=== PATIENT | female | born 1980 | race Caucasian/White ===

== ENCOUNTER 2018-04-07 07:24 | Emergency (ER) ==
[2018-04-07 07:28] VITALS: BP 109/73; TEMP 97.5; BMI 23.8
--- NOTE | 2018-04-07 07:51 | ED.PDOC ---
General ED Provider: Dr. MOO WHITE Chief Complaint: Wrist Pain/Injury Stated Complaint: right hand and wrist pain Time Seen by Physician: 07:33 (no injury. DELFINA MTZ RN WAS PRESENT AT ALL TIMES ) Mode of Arrival: Walk-In Information Source: Patient Exam Limitations: No limitations Nursing and Triage Documentation Reviewed and Agree: Yes Reviewed sepsis parameters & appropriate labs ordered?: Yes System Inflammatory Response Syndrome: Not Applicable (NO TRAUMA) Sepsis Protocol: For patient's 13 years and over: Temp is 96.8 and below OR 101 and greater Pulse >90 BPM Resp >20/minute Acutely Altered Mental Status Are patient's symptoms suggestive of a new infection, such as: -Pneumonia -Skin, Soft Tissue -Endocarditis -UTI -Bone, Joint Infection -Implantable Device -Acute Abdominal Infection -Wound Infection -Meningitis -Blood Stream Catheter Infection -Unknown Musculoskeletal Complaint Exam - Hand/Wrist Complaint/Exam Location of Pain: Reports: Right, Hand, Digit #1, Digit #2, Digit #3 Mechanism of Injury: Reports: No known trauma Onset/Duration: 2 DAYS Symptoms Are: Still present Onset of Pain: Reports: Days Initial Severity: Moderate Current Severity: Moderate Location: Reports: Discrete Character: Reports: Aching (NUMBNESS IN THE DISTRIBUTION OF MEDIAN NERVE ) Alleviating: Reports: None Aggravating: Reports: Movement Associated Signs and Symptoms: Denies: Swelling, Redness, Bruising, Fever, Weakness, Numbness, Tingling Related History: Reports: Similar episode Dominant Hand: Right Hand/Wrist Findings: Present: Tinel's Sign (POSITIVE). Absent: Swelling, Ecchymosis, Abnormal contour, Ligamentous instability Tenderness: Absent: Radius, Ulna, Snuff box, Carpal, Metacarpal, Phalanx Differential Diagnoses: Carpal Tunnel Syndrome Review of Systems - Review Of Systems Constitutional: Reports: No symptoms Eyes: Reports: No symptoms Ears, Nose, Mouth, Throat: Reports: No symptoms Respiratory: Reports: No symptoms Cardiac: Reports: No symptoms GI: Reports: No symptoms : Reports: No symptoms Musculoskeletal: Reports: Other (HAND PAIN) Skin: Reports: No symptoms Neurological: Reports: No symptoms Endocrine: Reports: No symptoms Hematologic/Lymphatic: Reports: No symptoms All Other Systems: Reviewed and Negative Past Medical History - Past Medical History Previously Healthy: Yes Endocrine: Reports: None Cardiovascular: Reports: None Respiratory: Reports: None Hematological: Reports: None Gastrointestinal: Reports: None Genitourinary: Reports: None Neuro/Psych: Reports: None Musculoskeletal: Reports: None Cancer: Reports: None Last Menstrual Period: SECOND WEEK OF MARCH - Surgical History General Surgical History: Reports: None - Family History Family History: Reports: None - Social History Smoking Status: Current every day smoker, Light tobacco smoker Hx Substance Use: No Alcohol Screening: None Physical Exam - Physical Exam Appearance: Well-appearing, No pain distress, Well-nourished Eyes: SALUD, EOMI, Conjunctiva clear ENT: Ears normal, Nose normal, Oropharynx normal Respiratory: Airway patent, Breath sounds clear, Breath sounds equal, Respirations nonlabored Cardiovascular: RRR, Pulses normal, No rub, No murmur GI/: Soft, Nontender, No masses, Bowel sounds normal, No Organomegaly Musculoskeletal: Limited ROM (THE RIGHT TENDER NUMBNESS NOTED IN THE DISTRIBUTION OF MEDIAN NERVE) Skin: Warm, Dry, Normal color Neurological: Sensation intact, Motor intact, Reflexes intact, Cranial nerves intact, Alert, Oriented Psychiatric: Affect appropriate, Mood appropriate Critical Care Note - Critical Care Note Total Time (mins): 0 Course - Course Vital Signs: Temp Pulse Resp BP Pulse Ox 04/07/18 07:24 97.5 F L 81 18 109/73 99 Departure - Departure Time of Disposition: 07:52 Disposition: HOME SELF-CARE Discharge Problem: Pain in wrist, Injury of wrist Carpal tunnel syndrome Qualifiers: Laterality: right Qualified Code(s): G56.01 - Carpal tunnel syndrome, right upper limb Instructions: Paresthesia (ED), Carpal Tunnel Surgery (DC) Condition: Good Pt referred to PMD for follow-up: Yes (CLINIC) IPMP verified?: Yes Additional Instructions: Please call your Family Physician as soon as possible to schedule a follow-up appointment.NEEDS TO SEE ORTHO FOR CARPAL TUNNEL EVALUATION. Prescriptions: Hydrocodone/Acetaminophen [[place] 5-325 Tablet] 1 each PO Q6HR PRN #12 tablet PRN Reason: PAIN Allergies/Adverse Reactions: Allergies Bleach (Sodium Hypochlorite) Adverse Reaction (Verified 04/07/18 07:28) Penicillins Adverse Reaction (Verified 04/07/18 07:28) Home Medications: Ambulatory Orders Hydrocodone/Acetaminophen [[place] 5-325 Tablet] 1 each PO Q6HR PRN #12 tablet
== END 2018-04-07 08:05 | disposition home or self-care (01) ==
LOC: ED 07:24
DX: G56.01 Carpal tunnel syndrome, right upper limb (principal); F17.210 Nicotine dependence, cigarettes, uncomplicated
CPT/HCPCS: 99282

== ENCOUNTER 2018-04-22 07:03 | Emergency (ER) ==
[2018-04-22 07:08] VITALS: BP 107/73; TEMP 98.1; BMI 23.0
[2018-04-22] MEDS ORDERED: ATIVAN IM STA (07:15)
--- NOTE | 2018-04-22 08:26 | DI ---
EXAM: Chest two view, frontal and lateral views. HISTORY: Chest pain. COMPARISON: None available. FINDINGS: The heart size is normal. There is no pulmonary vascular congestion. The lungs are clear . No pleural effusion or pneumothorax is seen. No acute osseous abnormality identified. Old left c lavicular fracture noted. IMPRESSION: No acute cardiopulmonary process.
[2018-04-22] MEDS ORDERED: ATIVAN IVP STA (08:34)
--- NOTE | 2018-04-22 09:42 | CT ---
EXAM: CT Angiogram Chest. HISTORY: Chest pain. COMPARISON: Radiograph earlier the same day. TECHNIQUE: Multiple axial images of the chest were obtained following intravenous administration of 125 mL of Omnipaque 350, low osmolar. Images were reformatted in the sagittal and coronal plane. 3- D and maximum intensity projection reformatted images were created on an independent workstation. FINDINGS: Residual thymic tissue is present. No mediastinal, hilar, or axillary lymphadenopathy peter ntified. Heart size is normal. No pericardial effusion identified. There is no evidence for aortic dissectio n. No pulmonary arterial filling defects are seen. No consolidation, pleural effusion or pneumothorax identified. A 0.3 cm subpleural right lower lobe nodule on axial image 51 most likely due to previous infection or inflammation. No acute abnormality identified in the upper abdomen. The osseous structures are within normal limit s for the patient's age save for old left lateral fifth rib fracture.. IMPRESSION: No evidence for pulmonary embolus or other acute abnormality of the chest.
--- NOTE | 2018-04-22 09:58 | ED.PDOC ---
General ED Provider: Dr. MOO WHITE Chief Complaint: Chest Pain Stated Complaint: chest pain Time Seen by Physician: 07:08 (RN PRESENT AT ALL TIMES ) Mode of Arrival: Walk-In Information Source: Patient Exam Limitations: No limitations Nursing and Triage Documentation Reviewed and Agree: Yes Does patient meet sepsis criteria?: Yes If yes, has appropriate treatment been initiated?: No System Inflammatory Response Syndrome: Not Applicable Sepsis Protocol: For patient's 13 years and over: Temp is 96.8 and below OR 101 and greater Pulse >90 BPM Resp >20/minute Acutely Altered Mental Status Are patient's symptoms suggestive of a new infection, such as: -Pneumonia -Skin, Soft Tissue -Endocarditis -UTI -Bone, Joint Infection -Implantable Device -Acute Abdominal Infection -Wound Infection -Meningitis -Blood Stream Catheter Infection -Unknown Cardiovascular Complaint Exam - Chest Pain Complaint/Exam Onset: Gradual Duration: 1 day Symptoms Are: Still present Timing: Constant Length of Chest Pain Episodes: 1 day pt gets such pain during her anxiety attacks Initial Severity: Moderate Current Severity: Moderate Location: Reports: Discrete, Midsternal Pain Radiates: Reports: None Character: Reports: Dull Aggravating: Reports: None Alleviating: Reports: None Associated Signs and Symptoms: Reports: Cough. Denies: Diaphoresis, Nausea, Vomiting, Fever, Palpitations, Hemoptysis, Back pain, Abdominal pain, Dizziness , Short of air, Calf pain, Calf swelling Related History: Reports: Similar episode Related Surgical History: Reports: None History of Healthcare-Acquired Pneumonia: Reports: No AMI/ACS Risk Factors: Reports: None TAD Risk Factors: Reports: None Pulmonary Embolism Risk Factors: Reports: None Prior Care for this Complaint: No Recent Stress Test: No Recent Echo/LV Function: No JVD Present: No Subcutaneous Emphysema Present: No Diminshed Breath Sounds: No Reproducible Chest Wall Pain: No Bilateral Pulses Present: Yes Unequal Pulses Noted: No If Risk Factors for AMI/ACS Consider: EKG, Cardiac Enzymes If Risk Factors for PE Consider: Chest CT with contrast Differential Diagnoses: ACS, Pulmonary Edema, Lower Resp. Infection Review of Systems - Review Of Systems Constitutional: Reports: No symptoms Eyes: Reports: No symptoms Ears, Nose, Mouth, Throat: Reports: No symptoms Respiratory: Reports: Cough Cardiac: Reports: Chest pain GI: Reports: No symptoms : Reports: No symptoms Musculoskeletal: Reports: No symptoms Skin: Reports: No symptoms Neurological: Reports: No symptoms Endocrine: Reports: No symptoms Hematologic/Lymphatic: Reports: No symptoms All Other Systems: Reviewed and Negative Past Medical History - Past Medical History Previously Healthy: Yes Endocrine: Reports: None Cardiovascular: Reports: None Respiratory: Reports: None Hematological: Reports: None Gastrointestinal: Reports: None Genitourinary: Reports: None Neuro/Psych: Reports: None Musculoskeletal: Reports: None Cancer: Reports: None Last Menstrual Period: 03/22/18 - Surgical History General Surgical History: Reports: None - Family History Family History: Reports: None - Social History Smoking Status: Current every day smoker, Light tobacco smoker Hx Substance Use: No Alcohol Screening: None Physical Exam - Physical Exam Appearance: Well-appearing, No pain distress, Well-nourished Eyes: SALUD, EOMI, Conjunctiva clear ENT: Ears normal, Nose normal, Oropharynx normal Respiratory: Airway patent, Breath sounds clear, Breath sounds equal, Respirations nonlabored Cardiovascular: RRR, Pulses normal, No rub, No murmur GI/: Soft, Nontender, No masses, Bowel sounds normal, No Organomegaly Musculoskeletal: Normal strength, ROM intact, No edema, No calf tenderness Skin: Warm, Dry, Normal color Neurological: Sensation intact, Motor intact, Reflexes intact, Cranial nerves intact, Alert, Oriented Psychiatric: Affect appropriate, Mood appropriate Interpretation - Radiology Interpretation Radiology Interpretation By: Radiologist Radiology Results: No acute changes Critical Care Note - Critical Care Note Total Time (mins): 0 Course - Course Hematology/Chemistry: 04/22/18 07:20 04/22/18 07:20 Orders, Labs, Meds: Lab Review 04/22/18 04/22/18 04/22/18 07:20 07:20 07:20 WBC 4.46 L RBC 3.57 L Hgb 8.1 L Hct 26.0 L MCV 72.8 L MCH 22.7 L MCHC 31.2 L RDW Coeff of Devyn 16.1 H Plt Count 172 Immature Gran % (Auto) 0.2 Neut % (Auto) 47.1 Lymph % (Auto) 42.6 Mcdonald % (Auto) 9.0 Eos % (Auto) 0.7 Baso % (Auto) 0.4 Immature Gran # (Auto) 0.0 Neut # (Auto) 2.1 Lymph # (Auto) 1.9 Mcdonald # (Auto) 0.4 Eos # (Auto) 0.0 Baso # (Auto) 0.0 PT INR APTT D-Dimer (Manual) Puncture Site O2 Saturation ABG pH ABG pCO2 ABG pO2 ABG HCO3 ABG Total CO2 ABG Base Excess Johny Test FiO2 % Sodium 140 Potassium 3.4 L Chloride 111 H Carbon Dioxide 21 Anion Gap 11.4 BUN 10 Creatinine 0.65 Estimated GFR (MDRD) 101.00 BUN/Creatinine Ratio 15.38 Glucose 96 Calcium 9.1 Total Bilirubin 0.7 AST 15 ALT 9 L Alkaline Phosphatase 53 Total Creatine Kinase 79 Troponin I < 0.0100 B-Natriuretic Peptide Total Protein 6.5 Albumin 3.5 Globulin 3.0 Albumin/Globulin Ratio 1.17 Serum , Qual Negative 04/22/18 04/22/18 04/22/18 08:00 08:00 08:00 WBC RBC Hgb Hct MCV MCH MCHC RDW Coeff of Devyn Plt Count Immature Gran % (Auto) Neut % (Auto) Lymph % (Auto) Mcdonald % (Auto) Eos % (Auto) Baso % (Auto) Immature Gran # (Auto) Neut # (Auto) Lymph # (Auto) Mcdonald # (Auto) Eos # (Auto) Baso # (Auto) PT 10.4 INR 1.04 APTT 24.1 D-Dimer (Manual) 342.54 Puncture Site O2 Saturation ABG pH ABG pCO2 ABG pO2 ABG HCO3 ABG Total CO2 ABG Base Excess Johny Test FiO2 % Sodium Potassium Chloride Carbon Dioxide Anion Gap BUN Creatinine Estimated GFR (MDRD) BUN/Creatinine Ratio Glucose Calcium Total Bilirubin AST ALT Alkaline Phosphatase Total Creatine Kinase Troponin I B-Natriuretic Peptide 79 Total Protein Albumin Globulin Albumin/Globulin Ratio Serum , Qual 04/22/18 08:29 WBC RBC Hgb Hct MCV MCH MCHC RDW Coeff of Devyn Plt Count Immature Gran % (Auto) Neut % (Auto) Lymph % (Auto) Mcdonald % (Auto) Eos % (Auto) Baso % (Auto) Immature Gran # (Auto) Neut # (Auto) Lymph # (Auto) Mcdonald # (Auto) Eos # (Auto) Baso # (Auto) PT INR APTT D-Dimer (Manual) Puncture Site Rrad O2 Saturation 99.0 ABG pH 7.474 H ABG pCO2 28.2 L ABG pO2 109.0 H ABG HCO3 20.7 L ABG Total CO2 22 ABG Base Excess -3 L Johny Test + FiO2 % 21.0 Sodium Potassium Chloride Carbon Dioxide Anion Gap BUN Creatinine Estimated GFR (MDRD) BUN/Creatinine Ratio Glucose Calcium Total Bilirubin AST ALT Alkaline Phosphatase Total Creatine Kinase Troponin I B-Natriuretic Peptide Total Protein Albumin Globulin Albumin/Globulin Ratio Serum , Qual Orders Category Date Time Status ABG DRAW REQUEST Stat CARDIO 04/22/18 08:30 Completed EKG-(ED ONLY) Stat CARDIO 04/22/18 07:15 Completed EKG-(ED ONLY) Stat CARDIO 04/22/18 08:31 Completed NPO REMINDER: IMAGING ONCE CARE 04/22/18 08:30 Active ABG Stat LAB 04/22/18 08:29 Completed B-TYPE NATRIURETIC PEPTIDE Stat LAB 04/22/18 08:00 Completed CBC W/ AUTO DIFF Stat LAB 04/22/18 07:20 Completed COMPREHENSIVE METABOLIC PANEL Stat LAB 04/22/18 07:20 Completed CREATINE KINASE Stat LAB 04/22/18 07:20 Completed D-DIMER Stat LAB 04/22/18 08:00 Completed PARTIAL THROMBOPLASTIN TIME Stat LAB 04/22/18 08:00 Completed PT WITH INR Stat LAB 04/22/18 08:00 Completed SERUM Stat LAB 04/22/18 07:20 Completed TROPONIN I Stat LAB 04/22/18 07:20 Completed Lorazepam [Ativan] MEDS 04/22/18 07:15 Discontinued 1 mg IM ONCE STA Lorazepam [Ativan] MEDS 04/22/18 08:34 Discontinued 1 mg IVP ONCE STA CHEST, 2 VIEWS PA & LAT Stat RADS 04/22/18 07:[address] CHEST PE PROTOCOL Stat RADS 04/22/18 08:29 Completed Medications Discontinued Medications Generic Name Dose Route Start Last Admin Trade Name Freq PRN Reason Stop Dose Admin Lorazepam 1 mg 04/22/18 07:15 04/22/18 07:20 Ativan IM 04/22/18 07:16 2 mg ONCE STA Administration Lorazepam 1 mg 04/22/18 08:34 Ativan IVP 04/22/18 08:35 ONCE STA Vital Signs: Temp Pulse Resp BP Pulse Ox 04/22/18 07:05 98.1 F 87 16 107/73 98 MESFIN Risk Score MESFIN Risk Score: Risk Score Odds of by 30D 0 0.1 (0.1-0.2) 1 0.3 (0.2-0.3) 2 0.4 (0.3-0.5) 3 0.7 (0.6-0.9) 4 1.2 (1.0-1.5) 5 2.2 (1.9-2.6) 6 3.0 (2.5-3.6) 7 4.8 (3.8-6.1) Departure - Departure Time of Disposition: 09:58 (nurses NEYMAR MARIN ,FELIX PRESENT PT REFUSED TO BE ADMITTED , RISKS DISCUSSED STILL REFUSED ) Disposition: AMA Discharge Problem: Chest pain Instructions: Angina (ED), Chest Pain (DC) Condition: Good Pt referred to PMD for follow-up: Yes IPMP verified?: No Additional Instructions: Please call your Family Physician as soon as possible to schedule a follow-up appointment. Allergies/Adverse Reactions: Allergies Bleach (Sodium Hypochlorite) Adverse Reaction (Verified 04/07/18 07:28) Penicillins Adverse Reaction (Verified 04/07/18 07:28) steroids Adverse Reaction (Uncoded 04/22/18 07:08) Home Medications: Ambulatory Orders 1 [No Reported Medications] 04/22/18
== END 2018-04-22 10:10 | disposition left against medical advice (07) ==
LOC: ED 07:03
DX: R07.9 Chest pain, unspecified (principal); R05 Cough; D64.9 Anemia, unspecified; F17.210 Nicotine dependence, cigarettes, uncomplicated
CPT/HCPCS: 36415; 80053; 82550; 82803; 83880; 84484; 84703; 85025; 85379; 85610; 85730; 93005; 93010; 96372; 99284

== ENCOUNTER 2018-06-09 07:07 | Emergency (ER) ==
[2018-06-09 07:14] VITALS: BP 100/62; TEMP 98.1; BMI 22.4
--- NOTE | 2018-06-09 07:28 | ED.PDOC ---
General ED Provider: Dr. KIRSTEN DAVENPORT Chief Complaint: Back Pain Stated Complaint: Rt Flank pain/lower central sharp chest wall Pain . Previouly dx pyelonephritis. Previously dx weak chest wall as cause of chest wall pain. Denies cardiac issues Time Seen by Physician: 07:15 Mode of Arrival: Walk-In Information Source: Patient Exam Limitations: No limitations Nursing and Triage Documentation Reviewed and Agree: Yes Does patient meet sepsis criteria?: No System Inflammatory Response Syndrome: Not Applicable Sepsis Protocol: For patient's 13 years and over: Temp is 96.8 and below OR 101 and greater Pulse >90 BPM Resp >20/minute Acutely Altered Mental Status Are patient's symptoms suggestive of a new infection, such as: -Pneumonia -Skin, Soft Tissue -Endocarditis -UTI -Bone, Joint Infection -Implantable Device -Acute Abdominal Infection -Wound Infection -Meningitis -Blood Stream Catheter Infection -Unknown Complaint Exam - UTI Female Complaint/Exam Patient Complains of: Reports: Painful urination (Awakened with "Rt Kidney Pain " 2 hrs ago. Pain in Rt Flank) Onset/Duration: 2hrs ago Symptoms Are: Still present Timing: Constant Initial Severity: Severe Current Severity: Moderate Location of Pain: Reports: Right, Flank Associated Signs and Symptoms: Reports: Flank pain. Denies: Fever, Chills, Dyspareunia, Vaginal discharge Related History: Reports: Similar episode Related Surgical History: Reports: None CVA Tenderness: Yes Suprapubic Tenderness: Yes Differential Diagnoses: Pyelonephritis - Complaint/Exam Patient Complains of: Reports: Pain Symptoms Are: Still present Timing: Constant Initial Severity: Severe Current Severity: Moderate Location of Pain: Reports: Right, Flank. Denies: Groin, Vulva, Suprapubic, Radiating Character: Reports: Sharp, Constant pressure Aggravating: Reports: None Alleviating: Reports: Position Associated Signs and Symptoms: Reports: Back pain. Denies: Hematuria, Dysuria, Rectal pain, Increased urine frequency, Abdominal Pain Related History: Reports: Similar episode (Related to pyelonephritis) Review of Systems - Review Of Systems Constitutional: Reports: No symptoms Eyes: Reports: No symptoms Ears, Nose, Mouth, Throat: Reports: No symptoms Respiratory: Reports: No symptoms Cardiac: Reports: No symptoms GI: Reports: No symptoms : Reports: Flank pain. Denies: Frequency, Urgency Musculoskeletal: Reports: No symptoms, Other (chest wall pain) Skin: Reports: No symptoms Neurological: Reports: No symptoms Endocrine: Reports: No symptoms Hematologic/Lymphatic: Reports: No symptoms All Other Systems: Reviewed and Negative Past Medical History - Past Medical History Previously Healthy: Yes Endocrine: Reports: None Cardiovascular: Reports: None Respiratory: Reports: None Hematological: Reports: None Gastrointestinal: Reports: None Genitourinary: Reports: None Neuro/Psych: Reports: None Musculoskeletal: Reports: None Cancer: Reports: None Last Menstrual Period: aug first part - Surgical History General Surgical History: Reports: None - Family History Family History: Reports: None - Social History Smoking Status: Current every day smoker, Light tobacco smoker Hx Substance Use: No Alcohol Screening: None Physical Exam - Physical Exam Appearance: Well-appearing, Thin Ill-appearing: Mild Pain Distress: Moderate Eyes: SALUD, EOMI, Conjunctiva clear ENT: Ears normal, Nose normal, Oropharynx normal Neck: Supple Respiratory: Airway patent, Breath sounds clear, Breath sounds equal, Respirations nonlabored Cardiovascular: RRR, Pulses normal, No rub, No murmur GI/: Soft, Nontender (positive Rt FLank(+ortiz's sign)), Bowel sounds normal , No Organomegaly Musculoskeletal: Normal strength (pos ant chest wall pain lower sternal) Skin: Warm, Dry, Normal color Neurological: Sensation intact, Motor intact, Reflexes intact, Cranial nerves intact, Alert, Oriented Psychiatric: Affect appropriate, Mood appropriate Critical Care Note - Critical Care Note Total Time (mins): 0 Course - Course Hematology/Chemistry: 06/09/18 07:44 06/09/18 07:44 Orders, Labs, Meds: Lab Review 06/09/18 06/09/18 06/09/18 07:20 07:20 07:44 WBC 3.92 L RBC 3.59 L Hgb 7.8 L Hct 26.1 L MCV 72.7 L MCH 21.7 L MCHC 29.9 L RDW Coeff of Devyn 16.6 H Plt Count 186 Immature Gran % (Auto) 0.3 Neut % (Auto) 43.6 Lymph % (Auto) 46.2 [place] % (Auto) 8.4 Eos % (Auto) 1.0 Baso % (Auto) 0.5 Immature Gran # (Auto) 0.0 Neut # (Auto) 1.7 L Lymph # (Auto) 1.8 [place] # (Auto) 0.3 L Eos # (Auto) 0.0 Baso # (Auto) 0.0 Sodium Potassium Chloride Carbon Dioxide Anion Gap BUN Creatinine Estimated GFR (MDRD) BUN/Creatinine Ratio Glucose Calcium Total Bilirubin AST ALT Alkaline Phosphatase Total Creatine Kinase Troponin I Total Protein Albumin Globulin Albumin/Globulin Ratio Urine Color Yellow Urine Clarity Clear Urine pH 5.5 Ur Specific [place] 1.020 Urine Protein Negative Urine Glucose (UA) Negative Urine Ketones Negative Urine Blood Negative Urine Nitrite Negative Urine Bilirubin Negative Urine Urobilinogen 0.2 Ur Leukocyte Esterase Negative Urine Opiates Screen Negative Ur Oxycodone Screen Negative Urine Methadone Screen Negative Ur Propoxyphene Screen Negative Ur Barbiturates Screen Negative U Tricyclic Antidepress Negative Ur Phencyclidine Scrn Negative Ur Amphetamine Screen Negative U Methamphetamines Scrn Negative U Benzodiazepines Scrn Negative Urine Cocaine Screen Negative U Cannabinoids Screen Negative 06/09/18 07:44 WBC RBC Hgb Hct MCV MCH MCHC RDW Coeff of Devyn Plt Count Immature Gran % (Auto) Neut % (Auto) Lymph % (Auto) [place] % (Auto) Eos % (Auto) Baso % (Auto) Immature Gran # (Auto) Neut # (Auto) Lymph # (Auto) [place] # (Auto) Eos # (Auto) Baso # (Auto) Sodium 137 Potassium 4.1 Chloride 109 H Carbon Dioxide 22 Anion Gap 10.1 BUN 12 Creatinine 0.65 Estimated GFR (MDRD) 101.00 BUN/Creatinine Ratio 18.46 Glucose 89 Calcium 9.6 Total Bilirubin 0.5 AST 26 ALT 19 Alkaline Phosphatase 67 Total Creatine Kinase 46 Troponin I < 0.0100 Total Protein 6.8 Albumin 3.6 Globulin 3.2 Albumin/Globulin Ratio 1.13 Urine Color Urine Clarity Urine pH Ur Specific [place] Urine Protein Urine Glucose (UA) Urine Ketones Urine Blood Urine Nitrite Urine Bilirubin Urine Urobilinogen Ur Leukocyte Esterase Urine Opiates Screen Ur Oxycodone Screen Urine Methadone Screen Ur Propoxyphene Screen Ur Barbiturates Screen U Tricyclic Antidepress Ur Phencyclidine Scrn Ur Amphetamine Screen U Methamphetamines Scrn U Benzodiazepines Scrn Urine Cocaine Screen U Cannabinoids Screen Orders Category Date Time Status EKG-(ED ONLY) Stat CARDIO 06/09/18 07:23 Ordered BLOOD CULTURE (ED ONLY) Stat LAB 06/09/18 07:44 Received CBC W/ AUTO DIFF Stat LAB 06/09/18 07:44 Completed CMP [COMPREHENSIVE METABOLIC PANEL] Stat LAB 06/09/18 07:44 Completed CPK [CREATINE KINASE] Stat LAB 06/09/18 07:44 Completed TROPONIN I Stat LAB 06/09/18 07:44 Completed UA [URINALYSIS C & S IF INDICATED] Stat LAB 06/09/18 07:20 Completed URINE DRUG SCREEN (RAPID FOR ED) [DRUG SCREEN, URINE, LAB 06/09/18 07:20 Completed RAPID] Stat CHEST, 1V AP ONLY Stat RADS 06/09/18 07:[address] ABD/PEL WO RENAL STONE PROT Stat RADS 06/09/18 08:09 Completed Vital Signs: Temp Pulse Resp BP Pulse Ox 06/09/18 07:07 98.1 F 66 20 100/62 99 Departure - Departure Time of Disposition: 09:15 Disposition: HOME SELF-CARE Discharge Problem: Bilateral nephrolithiasis, Anemia Instructions: Kidney Stones (ED), Renal Colic (ED) Condition: Fair Pt referred to PMD for follow-up: Yes IPMP verified?: No Additional Instructions: Consume adequate clear liquids Establish care with PCP and obtain referral to Urologist Urologist available in [place], [place] and [place], [place] If pain recurs or worsens return to ER Obtain Feosol for anemia and take 1 daily 1 hr after meals Follow up PCP for further evaluation in next week Prescriptions: Ferrous Sulfate [Feosol] 325 mg PO DAILY #30 tablet Allergies/Adverse Reactions: Allergies Bleach (Sodium Hypochlorite) Adverse Reaction (Verified 06/09/18 07:18) Penicillins Adverse Reaction (Verified 06/09/18 07:18) steroids Adverse Reaction (Uncoded 04/22/18 07:08) Home Medications: Ambulatory Orders Ferrous Sulfate [Feosol] 325 mg PO DAILY #30 tablet 06/09/18
--- NOTE | 2018-06-09 08:47 | CT ---
Exam: CT of the abdomen and pelvis without contrast History: Right flank pain Technique: [address] of the abdomen and pelvis without intravascular contrast FINDINGS: The lung bases are clear. No significant liver abnormality. The adrenals, pancreas and spl een are unremarkable. The stomach and hiatus are unremarkable.The gallbladder appears normal. Bilate ral nonobstructing nephrolithiasis. Largest calculus in the right measures 5 mm. There is no hydron ephrosis or hydroureter. The appendix is normal. Bowel loops demonstrate normal caliber. No inflamat ory change seen in the mesentery or retroperitoneum. Pelvic genitourinary structures appear normal. Pelvic bowel loops are unremarkable. No inflammatory c hange in the pelvic fat. No acute abnormality of the abdominal or pelvic skeleton. Impression: 1. No inflammatory process, bowel or urinary obstruction is seen. 2. Bilateral nonobstructing nephrolithiasis
--- NOTE | 2018-06-09 10:35 | DI ---
EXAM: Chest one view HISTORY: Chest pain, midsternal COMPARISON: 04/22/2018 TECHNIQUE: Single view of the chest was performed FINDINGS: The lungs are clear. There is no pleural effusion or pneumothorax. The heart is normal i n size. The mediastinal contour is normal. There are no acute abnormalities of the bones. Remodelin g left mid clavicle, likely due to old healed fracture. IMPRESSION: No acute cardiopulmonary process.
== END 2018-06-09 09:54 | disposition home or self-care (01) ==
LOC: ED 07:07
DX: N20.0 Calculus of kidney (principal); D64.9 Anemia, unspecified; F17.210 Nicotine dependence, cigarettes, uncomplicated
CPT/HCPCS: 36415; 74176; 80053; 80306; 81001; 82550; 84484; 85025; 87040; 87070; 87186; 93005; 93010; 99283